=== PATIENT | female | born 1995 | race Caucasian/White ===

== ENCOUNTER 2021-04-23 14:06 | Emergency (ER) | payer SELFPAY ==
[~2021-04-23] VITALS: Ht 167.7 cm; Wt 59.0 kg
--- NOTE | 2021-04-23 14:25 | ED Abdominal Pain ---
General Chief Complaint: OB < 20 WEEKS Stated Complaint: ABD PAIN-FEW WEEKS Source of Information: Patient Exam Limitations: No Limitations (DILCIA SANCHEZ APRN) History of Present Illness Date Seen by Provider: Apr 23, 2021 Time Seen by Provider: 14:24 Initial Comments To ER with right lower quadrant abdominal pain onset last night. Worsened by touching it. Nothing else makes it better or worse. No dysuria. She has not had fevers or chills. She is Judaism. She states that she was at [facility] and had a test that was positive this morning. LMP 5 weeks ago G1, P0. Timing/Duration: 1-2 Days Severity/Quality: Moderate Location: RLQ Radiation: No Radiation Activities at Onset: None Associated Symptoms: Denies Symptoms (DILCIA SANCHEZ APRN) Allergies and Home Medications Allergies Coded Allergies: No Known Drug Allergies (Unverified , 04/23/21) Home Medications Cefuroxime Axetil 250 Mg Tablet, 250 MG PO BID . Prescribed by: DILCIA SANCHEZ on 04/23/211842 Last Action: New Order Hydrocodone/Acetaminophen 1 Each Tablet, 1 TAB PO Q4H PRN for PAIN-MODERATE (5- 7) . Prescribed by: DILCIA SANCHEZ on 04/23/211843 Last Action: New Order Patient Home Medication List Home Medication List Reviewed: Yes (DILCIA SANCHEZ APRN) Review of Systems Review of Systems Constitutional: see HPI EENTM: No Symptoms Reported Respiratory: No Symptoms Reported Cardiovascular: No Symptoms Reported Gastrointestinal: See HPI, Abdominal Pain Genitourinary: No Symptoms Reported Musculoskeletal: no symptoms reported Skin: no symptoms reported Psychiatric/Neurological: No Symptoms Reported Endocrine: No Symptoms Reported Hematologic/Lymphatic: No Symptoms Reported (DILCIA SANCHEZ APRN) Physical Exam Vital Signs Vital Signs - First Documented 04/23/21 04/23/21 14:13 16:25 Temp 37.3 Pulse 114 Resp 18 B/P (MAP) 125/81 (96) Pulse Ox 99 O2 Delivery Room Air (ALANA FARMER MD) Vital Signs Capillary Refill : (DILCIA SANCHEZ APRN) Height/Weight/BMI Height: '" Weight: lbs. oz. kg; BMI Method: General Appearance: WD/WN, no apparent distress HEENT: PERRL/EOMI, normal ENT inspection Respiratory: no respiratory distress, no accessory muscle use Cardiovascular: no murmur, tachycardia (115) Gastrointestinal: normal bowel sounds, soft, tenderness Extremities: normal range of motion, non-tender Neurologic/Psychiatric: alert, normal mood/affect, oriented x 3 Skin: normal color, warm/dry (DILCIA SANCHEZ APRN) Progress/Results/Core Measures Results/Orders Lab Results Laboratory Tests Test 04/23/21 14:26 04/23/21 14:38 Range/Units Urine Color ORANGE Urine Clarity CLOUDY Urine pH 5.5 5-9 Urine Specific [place] 1.020 1.016-1.022 Urine Protein TRACE H NEGATIVE Urine Glucose (UA) NEGATIVE NEGATIVE Urine Ketones 1+ H NEGATIVE Urine Nitrite POSITIVE H NEGATIVE Urine Bilirubin NEGATIVE NEGATIVE Urine Urobilinogen 1.0 < = 1.0 MG/DL Urine Leukocyte Esterase 2+ H NEGATIVE Urine RBC (Auto) 1+ H NEGATIVE Urine RBC 2-5 H /HPF Urine WBC 25-50 H /HPF Urine Squamous Epithelial Cells 5-10 /HPF Urine Crystals NONE /LPF Urine Bacteria LARGE H /HPF Urine Casts NONE /LPF Urine Mucus NEGATIVE /LPF Urine Culture Indicated YES White Blood Count 9.8 4.3-11.0 10^3/uL Red Blood Count 4.68 3.80-5.11 10^6/uL Hemoglobin 12.8 11.5-16.0 g/dL Hematocrit 40 35-52 % Mean Corpuscular Volume 85 80-99 fL Mean Corpuscular Hemoglobin 27 25-34 pg Mean Corpuscular Hemoglobin Concent 32 32-36 g/dL Red Cell Distribution Width 12.4 10.0-14.5 % Platelet Count 209 130-400 10^3/uL Mean Platelet Volume 9.4 9.0-12.2 fL Immature Granulocyte % (Auto) 1 % Neutrophils (%) (Auto) 83 H 42-75 % Lymphocytes (%) (Auto) 8 L 12-44 % Monocytes (%) (Auto) 9 0-12 % Eosinophils (%) (Auto) 0 0-10 % Basophils (%) (Auto) 0 0-10 % Neutrophils # (Auto) 8.1 H 1.8-7.8 10^3/uL Lymphocytes # (Auto) 0.7 L 1.0-4.0 10^3/uL Monocytes # (Auto) 0.9 0.0-1.0 10^3/uL Eosinophils # (Auto) 0.0 0.0-0.3 10^3/uL Basophils # (Auto) 0.0 0.0-0.1 10^3/uL Immature Granulocyte # (Auto) 0.1 0.0-0.1 10^3/uL Neutrophils % (Manual) 73 % Lymphocytes % (Manual) 10 % Monocytes % (Manual) 8 % Band Neutrophils 9 % Blood Morphology Comment NORMAL Sodium Level 136 135-145 MMOL/L Potassium Level 3.3 L 3.6-5.0 MMOL/L Chloride Level 101 98-107 MMOL/L Carbon Dioxide Level 20 L 21-32 MMOL/L Anion Gap 15 H 5-14 MMOL/L Blood Urea Nitrogen 5 L 7-18 MG/DL Creatinine 0.77 0.60-1.30 MG/DL Estimat Glomerular Filtration Rate 92 BUN/Creatinine Ratio 6 Glucose Level 96 70-105 MG/DL Calcium Level 9.5 8.5-10.1 MG/DL Corrected Calcium 9.1 8.5-10.1 MG/DL Total Bilirubin 0.6 0.1-1.0 MG/DL Aspartate Amino Transf (AST/SGOT) 16 5-34 U/L Alanine Aminotransferase (ALT/SGPT) 17 0-55 U/L Alkaline Phosphatase 80 40-136 U/L C-Reactive Protein High Sensitivity 10.98 H 0.00-0.50 MG/DL Total Protein 8.3 H 6.4-8.2 GM/DL Albumin 4.5 3.2-4.5 GM/DL Human Chorionic Gonadotropin, Quant 2503 H <5 MIU/ML (ALANA FARMER MD) Vital Signs/I&O 04/23/21 04/23/21 14:13 16:25 Temp 37.3 Pulse 114 74 Resp 18 B/P (MAP) 125/81 (96) 100/58 Pulse Ox 99 O2 Delivery Room Air 04/24/21 00:00 Intake Total 1010 ml Balance 1010 ml (ALANA FARMER MD) Departure Communication (Admissions) I spoke with Dr. Jarrell about the UTI, the ultrasound findings, and the beta-hCG. None of these can be definitively treated at this point. She recommends treatment for the urinary tract infection. A repeat beta-hCG in 48 hours and an ultrasound repeat in 1 week. 1621-I spoke with Lane Kat from the [facility]. Irina FATUMA will follow up with the patient this at 1:40 PM. NAME: [facility] REC#: [id number] PT STATUS: REG ER : 1995 PHYSICIAN: DILCIA SANCHEZ APRN ADMIT DATE: 04/23/21/ER Signed Date of Exam:04/23/21 US OB<14 WKS SNGLE W/TRANSVAG DATE: 04/23/2021 at 3:40 PM. REASON FOR EXAM: Positive test. Right lower quadrant pain. COMPARISON: None. TECHNIQUE: Transabdominal and transvaginal ultrasound was performed. CLINICAL DATES: 4 weeks 4 days, [place] of 12/27/2021. FINDINGS: A small sonolucent focus is seen within the endometrium measuring 0.5 cm. This demonstrates double decidual reaction. No evidence of pole, heart tones, or yolk sac. These findings would correspond with an estimated gestational age of 5 weeks 0 days. The uterus measures 8.8 x 4.1 cm. No focal uterine masses are seen. The right ovary measures 2.4 x 1.3 x 2.4 cm. The left ovary measures 3.2 x 2.3 x 2.9 cm. A hypoechoic structure is seen adjacent to the right ovary. An isoechoic follicle is seen in the left ovary. No free fluid in the pelvis. IMPRESSION: 1. Sonolucent focus within the endometrium which may represent an early gestation versus blighted ovum. No heart tones or pole is seen at this time. Recommend continued followup with serial beta hCGs and pelvic ultrasound as indicated. 2. Hypoechoic structure adjacent to the right ovary, favored to represent an exophytic cyst or dominant follicle. Ectopic is not completely excluded and continued followup is recommended. No free fluid is seen in the pelvis. Dictated by: Dictated on workstation # [id number] Dict: 04/23/21 1541 Trans: 04/23/21 1552 [id number] Interpreted by: WAYNE ZEPEDA DO Electronically signed by: WAYNE ZEPEDA DO 04/23/21 4650 (DILCIA SANCHEZ APRN) Impression Primary Impression: UTI (urinary tract infection) Additional Impressions: Ovarian cyst Early stage of Disposition: 01 HOME, SELF-CARE Condition: Stable Departure-Patient Inst. Decision time for Depature: 15:57 (DILCIA SANCHEZ APRN) Referrals: NO,LOCAL PHYSICIAN (PCP) Primary Care Physician Patient Instructions: Ovarian Cyst ED, Urinary Tract Infection, Adult (DC) Add. Discharge Instructions: 1. You are to follow-up with [facility] this at 1:40 PM for repeat blood work. You will need a repeat ultrasound next week. Take the antibiotics as directed. I have sent [facility]. All discharge instructions reviewed with patient and/or family. Voiced understanding. Scripts Hydrocodone/Acetaminophen (Hydrocodone-Acetamin 5-325 mg) 1 Each Tablet 1 TAB PO Q4H PRN for PAIN-MODERATE (5-7), #14 TAB . Prov: DILCIA SANCHEZ APRN 04/23/21 Cefuroxime Axetil (Cefuroxime) 250 Mg Tablet 250 MG PO BID, #10 TAB . Prov: DILCIA SANCHEZ APRN 04/23/21 ATTENDING PHYSICIAN NOTE: I was physically present as attending physician in the emergency department d uring the care of this patient, but I was not directly involved in the decision making or delivery of care for this patient. (ALANA FARMER MD) DILCIA SANCHEZ APRN Apr 23, 2021 14:25 ALANA FARMER MD Apr 24, 2021 06:55
[2021-04-23] MEDS ORDERED: LACTATED RINGERS 1,000 ML IV SCH (14:30)
[2021-04-23 14:36] LABS: BILIRUBIN,URINE NEGATIVE (NEGATIVE); CLARITY,URINE CLOUDY; COLOR,URINE ORANGE; GLUCOSE, URINE (UA) NEGATIVE (NEGATIVE); KETONES,URINE 1+ (NEGATIVE); LEUKOCYTE ESTERASE ,URINE 2+ (NEGATIVE); NITRITE,URINE POSITIVE (NEGATIVE); PH,URINE 5.5 (5-9); PROTEIN,URINE TRACE (NEGATIVE)
[2021-04-23 14:48] LABS: BASOPHILS % (AUTO) 0 % (0-10); EOSINOPHILS % (AUTO) 0 % (0-10); HEMATOCRIT 40 % (35-52); HEMOGLOBIN 12.8 g/dL (11.5-16.0); LYMPHOCYTES # (AUTO) 0.7 10^3/uL (1.0-4.0); LYMPHOCYTES % (AUTO) 8 % (12-44); MEAN CORPUSCULAR HEMOGLOBIN 27 pg (25-34); MEAN CORPUSCULAR HGB CONC 32 g/dL (32-36); MEAN CORPUSCULAR VOLUME 85 fL (80-99); MEAN PLATELET VOLUME 9.4 fL (9.0-12.2); MONOCYTES # (AUTO) 0.9 10^3/uL (0.0-1.0); MONOCYTES % (AUTO) 9 % (0-12); NEUTROPHILS # (AUTO) 8.1 10^3/uL (1.8-7.8); NEUTROPHILS % (AUTO) 83 % (42-75); PLATELET COUNT 209 10^3/uL (130-400); WHITE BLOOD COUNT 9.8 10^3/uL (4.3-11.0)
[2021-04-23 15:07] LABS: BACTERIA,URINE LARGE /HPF; WBC,URINE 25-50 /HPF
[2021-04-23 15:12] LABS: BAND NEUTROPHILS 9 %; LYMPHOCYTES % (MANUAL) 10 %; MONOCYTES % (MANUAL) 8 %; NEUTROPHILS % (MANUAL) 73 %
[2021-04-23 15:13] LABS: RBC MORPH NORMAL
[2021-04-23] MEDS ORDERED: cefTRIAXone 1,000 MG in WATER (STERILE) FOR INJECTION 10 ML IV ONE (15:15)
[2021-04-23 15:32] LABS: ALBUMIN 4.5 GM/DL (3.2-4.5); POTASSIUM 3.3 MMOL/L (3.6-5.0)
[2021-04-23 15:34] LABS: CALCIUM 9.5 MG/DL (8.5-10.1)
[2021-04-23 15:35] LABS: TOTAL PROTEIN 8.3 GM/DL (6.4-8.2)
[2021-04-23 15:37] LABS: BILIRUBIN,TOTAL 0.6 MG/DL (0.1-1.0)
[2021-04-23 15:38] LABS: CREATININE SERUM 0.77 MG/DL (0.60-1.30)
--- NOTE | 2021-04-23 15:52 | Diagnostic Imaging Report ---
DATE: 04/23/2021 at 3:40 PM. REASON FOR EXAM: Positive test. Right lower quadrant pain. COMPARISON: None. TECHNIQUE: Transabdominal and transvaginal ultrasound was performed. CLINICAL DATES: 4 weeks 4 days, [place] of 12/27/2021. FINDINGS: A small sonolucent focus is seen within the endometrium measuring 0.5 cm. This demonstrates double decidual reaction. No evidence of pole, heart tones, or yolk sac. These findings would correspond with an estimated gestational age of 5 weeks 0 days. The uterus measures 8.8 x 4.1 cm. No focal uterine masses are seen. The right ovary measures 2.4 x 1.3 x 2.4 cm. The left ovary measures 3.2 x 2.3 x 2.9 cm. A hypoechoic structure is seen adjacent to the right ovary. An isoechoic follicle is seen in the left ovary. No free fluid in the pelvis. IMPRESSION: 1. Sonolucent focus within the endometrium which may represent an early gestation versus blighted ovum. No heart tones or pole is seen at this time. Recommend continued followup with serial beta hCGs and pelvic ultrasound as indicated. 2. Hypoechoic structure adjacent to the right ovary, favored to represent an exophytic cyst or dominant follicle. Ectopic is not completely excluded and continued followup is recommended. No free fluid is seen in the pelvis. Dictated by: Dictated on workstation # [id number]
[2021-04-23] MEDS ORDERED: CEFU250T80 PO ×2 (16:23→18:43)
[2021-04-23 16:25] VITALS: BP 100/58
[2021-04-23] MEDS ORDERED: ACHD5005 PO ×2 (16:42→18:43)
== END 2021-04-23 16:25 | disposition home or self-care (01) ==
LOC: ER 14:09
DX: O23.41 Unspecified infection of urinary tract in pregnancy, first trimester (principal); O34.81 Maternal care for other abnormalities of pelvic organs, first trimester; N83.201 Unspecified ovarian cyst, right side; Z3A.01 Less than 8 weeks gestation of pregnancy
CPT/HCPCS: 36415; 76801; 76817; 80053; 81000; 84702; 85007; 85027; 86141; 86900; 86901; 87077; 87088; 87186; 96361; 96374

== ENCOUNTER 2022-09-21 08:34 | Observation (INO) | payer SELFPAY ==
[~2022-09-21] VITALS: Ht 165 cm; Wt 81.6 kg
[~2022-09-21 08:34] MED LIST: ACHD5005 PO; CEFU250T80 PO
[2022-09-21] MEDS ORDERED: NS IV 1000 ML 1,000 ML IV SCH (08:45)
[2022-09-21 08:51] LABS: BASOPHILS % (AUTO) 0 % (0-10); EOSINOPHILS % (AUTO) 0 % (0-10); HEMATOCRIT 32 % (35-52); HEMOGLOBIN 10.6 g/dL (11.5-16.0); LYMPHOCYTES % (AUTO) 10 % (12-44); MEAN CORPUSCULAR HEMOGLOBIN 28 pg (25-34); MEAN CORPUSCULAR HGB CONC 34 g/dL (32-36); MEAN CORPUSCULAR VOLUME 84 fL (80-99); MEAN PLATELET VOLUME 10.2 fL (9.0-12.2); MONOCYTES # (AUTO) 0.9 10^3/uL (0.0-1.0); MONOCYTES % (AUTO) 5 % (0-12); NEUTROPHILS % (AUTO) 85 % (42-75); PLATELET COUNT 249 10^3/uL (130-400)
--- NOTE | 2022-09-21 08:51 | ED General ---
General Source of Information: Patient, Caregiver Exam Limitations: No Limitations History of Present Illness Date Seen by Provider: Sep 21, 2022 Time Seen by Provider: 08:35 Initial Comments 26-year-old female newly at 230 this morning presents for dizziness, lightheadedness and tachycardia. Utilities Estimator And Drafter had called me and brings the patient and her baby in. She gave at 230 this morning. 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 She tells me she has had an uncomplicated to date. No fevers chills. She complains of being fatigued and a little lightheaded upon arrival. Allergies and Home Medications Allergies Coded Allergies: No Known Drug Allergies (Unverified , 04/23/21) Patient Home Medication List Home Medication List Reviewed: Yes Cefuroxime Axetil (Cefuroxime) 250 Mg Tablet, 250 MG PO BID Prescribed by: DILCIA SANCHEZ on 04/23/21 184 Hydrocodone/Acetaminophen (Hydrocodone-Acetamin 5-325 mg) 1 Each Tablet, 1 TAB PO Q4H PRN for PAIN-MODERATE (5-7) Prescribed by: DILCIA SANCHEZ on 04/23/21 184 Review of Systems Review of Systems Constitutional: malaise, other (Lightheadedness) EENTM: no symptoms reported Respiratory: no symptoms reported Cardiovascular: no symptoms reported Gastrointestinal: no symptoms reported Genitourinary: no symptoms reported Musculoskeletal: no symptoms reported Skin: no symptoms reported Psychiatric/Neurological: No Symptoms Reported Hematologic/Lymphatic: No Symptoms Reported Immunological/Allergic: no symptoms reported Past Bcbyrak-Jkapdh-Nkbzok Hx Patient Social History Tobacco Use?: No Use of E-Cig and/or Vaping dev: No Substance use?: No Alcohol Use?: No Family Medical History Reviewed Nursing Family Hx No Pertinent Family Hx Physical Exam Vital Signs Vital Signs - First Documented 09/21/22 08:52 Temp 37.1 Pulse 113 Resp 20 B/P (MAP) 109/68 (82) Pulse Ox 100 Capillary Refill : Height, Weight, BMI Height: '" Weight: lbs. oz. kg; 20.00 BMI Method: General Appearance: No Apparent Distress, WD/WN HEENT: PERRL/EOMI, Normal ENT Inspection, Pharynx Normal Neck: Normal Inspection, Non Tender, Supple Respiratory: Chest Non Tender, Lungs Clear, Normal Breath Sounds, No Accessory Muscle Use, No Respiratory Distress Cardiovascular: No Murmur, Normal Peripheral Pulses, Tachycardia Gastrointestinal: Normal Bowel Sounds, Soft, Other (Uterus is contracted) Back: Normal Inspection Extremity: Normal Capillary Refill, Normal Inspection, Non Tender, No Calf Tenderness Neurologic/Psychiatric: Alert, Oriented x3, No Motor/Sensory Deficits Skin: Warm/Dry, Pallor Progress/Results/Core Measures Suspected Sepsis SIRS Temperature: Pulse: Respiratory Rate: Laboratory Tests 09/21/22 08:40: White Blood Count 20.0H Blood Pressure / Mean: Laboratory Tests 09/21/22 08:40: Creatinine 0.67, Platelet Count 249, Total Bilirubin 0.4 Results/Orders Lab Results Laboratory Tests Test 09/21/22 08:40 Range/Units White Blood Count 20.0 H 4.3-11.0 10^3/uL Red Blood Count 3.75 L 3.80-5.11 10^6/uL Hemoglobin 10.6 L 11.5-16.0 g/dL Hematocrit 32 L 35-52 % Mean Corpuscular Volume 84 80-99 fL Mean Corpuscular Hemoglobin 28 25-34 pg Mean Corpuscular Hemoglobin Concent 34 32-36 g/dL Red Cell Distribution Width 12.6 10.0-14.5 % Platelet Count 249 130-400 10^3/uL Mean Platelet Volume 10.2 9.0-12.2 fL Immature Granulocyte % (Auto) 1 % Neutrophils (%) (Auto) 85 H 42-75 % Lymphocytes (%) (Auto) 10 L 12-44 % Monocytes (%) (Auto) 5 0-12 % Eosinophils (%) (Auto) 0 0-10 % Basophils (%) (Auto) 0 0-10 % Neutrophils # (Auto) 17.0 H 1.8-7.8 10^3/uL Lymphocytes # (Auto) 2.0 1.0-4.0 10^3/uL Monocytes # (Auto) 0.9 0.0-1.0 10^3/uL Eosinophils # (Auto) 0.0 0.0-0.3 10^3/uL Basophils # (Auto) 0.0 0.0-0.1 10^3/uL Immature Granulocyte # (Auto) 0.1 0.0-0.1 10^3/uL Neutrophils % (Manual) 85 % Lymphocytes % (Manual) 12 % Monocytes % (Manual) 2 % Band Neutrophils 1 % Blood Morphology Comment NORMAL Sodium Level 133 L 135-145 MMOL/L Potassium Level 4.3 3.6-5.0 MMOL/L Chloride Level 103 98-107 MMOL/L Carbon Dioxide Level 18 L 21-32 MMOL/L Anion Gap 12 5-14 MMOL/L Blood Urea Nitrogen 10 7-18 MG/DL Creatinine 0.67 0.60-1.30 MG/DL Estimat Glomerular Filtration Rate 124 BUN/Creatinine Ratio 15 Glucose Level 94 70-105 MG/DL Calcium Level 9.7 8.5-10.1 MG/DL Corrected Calcium 10.3 H 8.5-10.1 MG/DL Total Bilirubin 0.4 0.1-1.0 MG/DL Aspartate Amino Transf (AST/SGOT) 49 H 5-34 U/L Alanine Aminotransferase (ALT/SGPT) 48 0-55 U/L Alkaline Phosphatase 187 H 40-136 U/L Total Protein 6.5 6.4-8.2 GM/DL Albumin 3.3 3.2-4.5 GM/DL My Orders Orders - RENEE BANUELOS DO Comprehensive Metabolic Panel (09/21/22 08:41) Type And Screen (09/21/22 08:41) Cbc With Automated Diff (09/21/22 08:41) Ns Iv 1000 Ml (Sodium Chloride 0.9%) (09/21/22 08:45) Manual Differential (09/21/22 08:40) Ns Iv 500 Ml (Sodium Chloride 0.9%) (09/21/22 09:11) Ed Admission (Communication) (09/21/22 09:43) Medications Given in ED Current Medications Medications Dose Ordered Sig/Sonia Route Start Time Stop Time Status Last Admin Dose Admin Sodium Chloride 500 ml @ ud STK-MED ONCE .ROUTE 09/21/22 09:11 09/21/22 09:15 DC 09/21/22 09:18 5 MLS/HR Vital Signs/I&O 09/21/22 08:52 Temp 37.1 Pulse 113 Resp 20 B/P (MAP) 109/68 (82) Pulse Ox 100 Capillary Refill : Departure Communication (Admissions) 0900: notified by RN that mothers pressure is low, 80's systolic. re-eval shows no changes outside of BP and some subjective dizziness. Placed in trendelenberg position and symptoms improved as did BP. Ordered 1u unmatched blood to be given. She has IVF going. Exam reveals no active bleeding at t his time. 0940: Patient's blood pressure has improved. Spoke Dr. Gusman he agrees to accept the patient in observation at this time. Impression Primary Impression: Delivery of Additional Impression: Hypotension Qualified Codes: I95.9 - Hypotension, unspecified Disposition: 09 ADMITTED INPATIENT Condition: Stable Admissions Decision to Admit Reason: Admit from ER (General) Decision to Admit/Date: Sep 21, 2022 Time/Decision to Admit Time: 09:42 Departure-Patient Inst. Referrals: NO,LOCAL PHYSICIAN (PCP/Family) Primary Care Physician RENEE BANUELOS DO Sep 21, 2022 08:51
[2022-09-21 09:01] LABS: ALBUMIN 3.3 GM/DL (3.2-4.5)
[2022-09-21 09:02] LABS: POTASSIUM 4.3 MMOL/L (3.6-5.0)
[2022-09-21 09:03] LABS: CALCIUM 9.7 MG/DL (8.5-10.1)
[2022-09-21 09:04] LABS: TOTAL PROTEIN 6.5 GM/DL (6.4-8.2)
[2022-09-21 09:06] LABS: BILIRUBIN,TOTAL 0.4 MG/DL (0.1-1.0)
[2022-09-21 09:08] LABS: CREATININE SERUM 0.67 MG/DL (0.60-1.30)
[2022-09-21] MEDS ORDERED: NS IV 500 ML 500 ML ONE (09:11)
[2022-09-21 09:15] LABS: BAND NEUTROPHILS 1 %; LYMPHOCYTES % (MANUAL) 12 %; MONOCYTES % (MANUAL) 2 %; NEUTROPHILS % (MANUAL) 85 %
[2022-09-21 09:16] LABS: RBC MORPH NORMAL
[2022-09-21 11:05] VITALS: BP 106/61
[2022-09-21] MEDS ORDERED: BENZOCAINE/MENTHOL (DERMOPLAST) 56 ML CAN TP PRN (12:00)
[2022-09-21] MEDS ORDERED: TETANUS,DIPTH,PERTUSS P/F (BOOSTRIX) 0.5 ML VIAL IM ONE (12:00)
[2022-09-21] MEDS ORDERED: WITCH HAZEL(TUCKS) 40 EA JAR TOP PRN (12:00)
[2022-09-21] MEDS ORDERED: MEASLES,MUMPS,RUBELLA 1 EA INJ SQ ONE (12:00)
[2022-09-21] MEDS ORDERED: ACETAMINOPHEN 500 MG TAB (TYLENOL) PO SCH (12:00)
[2022-09-21] MEDS ORDERED: IBUPROFEN 800 MG (MOTRIN) TAB PO SCH (12:00)
[2022-09-21 12:15] VITALS: BP 120/77
--- NOTE | 2022-09-21 12:31 | History & Physical ---
History and Physical Date Seen by Provider: Sep 21, 2022 Time Seen by Provider: 12:22 This patient is a 26-year-old 3 now para 1 female Who presented to the emergency department after having a home delivery attended by a student life advisor. She reports spontaneous rupture membranes about 1:30 in the morning with delivery just before 2:30 in the morning. The student life advisor is present while I am interviewing the patient and she reports that the delivery was uncomplicated there was a nuchal arm That was released on delivery of the head. The delivery completed atraumatically.The placenta delivered spontaneously and was intact per the student life advisor. Patient had blood loss estimated around 600 cc. The nurse student life advisor did a exam and noticed what she describes as a skin rosalina on the perineum.She reports no excessive bleeding from that area. She noted no other lacerations.Nurse student life advisor does express concern as patient seems to be having more pain with ambulation and movement in her bottom than what she would have anticipated. This patient's baby is a female and is doing well. The patient denies chest pain, denies shortness of breath, denies nausea or vomiting. She does report that she is feeling better and her cramps and pain are improving.It is noted that patient received a liter of fluid in our emergency department and also was given empirically a unit of packed red cells. Allergies are none Medications are none Medical History is negative Surgical history is negative OB history includes 2 miscarriages 1 at about 4 months. Patient is reportedly constitutional: No fever, fatigue or weight loss. Skin: No rash. Cardiovascular: No chest pain. Respiratory: No cough, shortness of breath, congestion, or wheezing. Pelvic exam with the There is superficial skin separation of the posterior fourchette and perineal body. This constitutes less than a first-degree laceration.There is no active bleeding. Musculoskeletal: No joint swelling. Hematologic: No unusual bruising or bleeding. This patient had a negative antibody screen for the Rh factor during this . Is already known that the baby is Rh Negative Laboratory Tests Test 09/21/22 08:40 Range/Units White Blood Count 20.0 H 4.3-11.0 10^3/uL Red Blood Count 3.75 L 3.80-5.11 10^6/uL Hemoglobin 10.6 L 11.5-16.0 g/dL Hematocrit 32 L 35-52 % Mean Corpuscular Volume 84 80-99 fL Mean Corpuscular Hemoglobin 28 25-34 pg Mean Corpuscular Hemoglobin Concent 34 32-36 g/dL Red Cell Distribution Width 12.6 10.0-14.5 % Platelet Count 249 130-400 10^3/uL Mean Platelet Volume 10.2 9.0-12.2 fL Immature Granulocyte % (Auto) 1 % Neutrophils (%) (Auto) 85 H 42-75 % Lymphocytes (%) (Auto) 10 L 12-44 % Monocytes (%) (Auto) 5 0-12 % Eosinophils (%) (Auto) 0 0-10 % Basophils (%) (Auto) 0 0-10 % Neutrophils # (Auto) 17.0 H 1.8-7.8 10^3/uL Lymphocytes # (Auto) 2.0 1.0-4.0 10^3/uL Monocytes # (Auto) 0.9 0.0-1.0 10^3/uL Eosinophils # (Auto) 0.0 0.0-0.3 10^3/uL Basophils # (Auto) 0.0 0.0-0.1 10^3/uL Immature Granulocyte # (Auto) 0.1 0.0-0.1 10^3/uL Neutrophils % (Manual) 85 % Lymphocytes % (Manual) 12 % Monocytes % (Manual) 2 % Band Neutrophils 1 % Blood Morphology Comment NORMAL Sodium Level 133 L 135-145 MMOL/L Potassium Level 4.3 3.6-5.0 MMOL/L Chloride Level 103 98-107 MMOL/L Carbon Dioxide Level 18 L 21-32 MMOL/L Anion Gap 12 5-14 MMOL/L Blood Urea Nitrogen 10 7-18 MG/DL Creatinine 0.67 0.60-1.30 MG/DL Estimat Glomerular Filtration Rate 124 BUN/Creatinine Ratio 15 Glucose Level 94 70-105 MG/DL Calcium Level 9.7 8.5-10.1 MG/DL Corrected Calcium 10.3 H 8.5-10.1 MG/DL Total Bilirubin 0.4 0.1-1.0 MG/DL Aspartate Amino Transf (AST/SGOT) 49 H 5-34 U/L Alanine Aminotransferase (ALT/SGPT) 48 0-55 U/L Alkaline Phosphatase 187 H 40-136 U/L Total Protein 6.5 6.4-8.2 GM/DL Albumin 3.3 3.2-4.5 GM/DL Vital Signs Date Time Temp Pulse Resp B/P (MAP) Pulse Ox O2 Delivery O2 Flow Rate FiO2 09/21/22 10:45 102 18 112/68 99 09/21/22 08:52 37.1 113 20 109/68 (82) 100 Assessment and plan This patient is status post term spontaneous vaginal delivery at home attended by a student life advisor. With delivery sounds and appears to be uncomplicated. There was concerned about patient's blood pressure after delivery with a reported pressure of 80 over 50s. Pulse is not available for the timing of that blood pressure. The description by the student life advisor was that the patient was pale, diaphoretic, lightheaded and nauseated. That presentation coupled with an EBL of 600 for the delivery would be more likely consistent with vasovagal syncope than with hypovolemia. At this point we will continue observation. Patient's pelvic exam was reassuring. We will observe patient until she is requesting discharge home should she remain stable then she can be discharged as needed her request vasovagal syncope Allergies and Home Medications Allergies Coded Allergies: No Known Drug Allergies (Unverified , 04/23/21) Patient Home Medication List Home Medication List Reviewed: Yes Cefuroxime Axetil (Cefuroxime) 250 Mg Tablet, 250 MG PO BID Prescribed by: DILCIA SANCHEZ on 04/23/211842 Hydrocodone/Acetaminophen (Hydrocodone-Acetamin 5-325 mg) 1 Each Tablet, 1 TAB PO Q4H PRN for PAIN-MODERATE (5-7) Prescribed by: DILCIA SANCHEZ on 04/23/21 184 CORNELIUS LANGLEY MD Sep 21, 2022 12:31
--- NOTE | 2022-09-21 12:35 | Discharge Inst-Surgical ---
Discharge Inst-Surgical Depart Medication/Instructions New, Converted or Re-Newed RX: Other Consults/Follow Up Orders & Referrals Follow Up Appt: Call to make follow up appt. for patient in 6 weeks With your PCP Neck follow-up in my clinic as needed for excessive bleeding/pain/discharge/any concerns for problem . Activity Per routine post vaginal delivery instructions. Diet as tolerated Patient may shower or tub bathe as desired. Activity Activity as Tolerated: No Diet Discharge Diet: No Restrictions CORNELIUS LANGLEY MD Sep 21, 2022 12:35
[2022-09-21] MEDS ORDERED: CATHETER FLUSH 10 ML SYR IV SCH (14:00)
[2022-09-21 14:15] VITALS: BP 112/69
[2022-09-21] MEDS ORDERED: PREN1TAB19 PO (14:17)
[2022-09-21] MEDS ORDERED: MULT-974 PO (14:17)
[2022-09-21 14:41] VITALS: BP 112/69
[2022-09-21 16:40] VITALS: BP 112/69
[2022-09-21] MEDS ORDERED: DOCUSATE SODIUM 100 MG (COLACE) CAP PO SCH (21:00)
== END 2022-09-21 16:40 | disposition home or self-care (01) ==
LOC: EDUNIT# 08:34 → ER 08:40 → UNDOADMOB 09:44 → LDRP 09:44 → UNDODISOB 16:40
PROVIDERS: ADMIT Obstetrics & Gynecology; ATTEND Obstetrics & Gynecology
DX: O90.89 Other complications of the puerperium, not elsewhere classified (principal); R55 Syncope and collapse; Z28.310 Unvaccinated for COVID-19
CPT/HCPCS: 59409; 80053; 85007; 85027; 86850; 86900; 86901; 86920; 99285; G0378; P9016; 36415